=== PATIENT | male | born 1960 | race African-American/Black ===

== ENCOUNTER 2020-12-25 18:00 | Emergency (ER) | payer BC ==
[~2020-12-25] VITALS: Ht 182.9 cm; Wt 137.4 kg
--- NOTE | ~2020-12-25 | EMS ---
[place] [address] EMS Patient Care Report Name: ELMO CHEEMA [id number] Admission: 12/25/20 Attend Phys: Discharge: 12/25/20 Date of : 62 Report #: [id number] THIS REPORT FOR: //name// Report Transmitted: 12/26/2020 03:25 EMS Care Summary [place], [place] Incident [id number] @ 12/25/2020 17:27 Incident Location [facility] [address] [place] [address] Patient ELMO CHEEMA Male, 59 Years 1960 Patient Address [address] [place] [address] Patient History None Reported, Patient Allergies No known allergies,Bee sting allergy, Patient Medications None Reported, Chief Complaint allergic reaction Disposition Transported No Lights/Termo Dispatch Reason Allergic Reaction/Stings Transported To [facility] Narrative M36 dispatched on an allergic reactions. M36 arrived to find PT laying in left lateral position on mattress inside home. PT face bleeding from laceration by right eye. PT stated bee stings as chief complaint. PT denied medical history, allergies and medication. PT stated he "was in the backyard, [place] [address] EMS Patient Care Report Name: ELMO CHEEMA Room #: DEP [facility]#: [id number] Admission: 12/25/20 Attend Phys: Discharge: 12/25/20 Date of : 62 Report #: [id number] my legs. I came inside to take a shower to help the pain and fell in the bathroom." PT denied neck and back pain. PT airway open and patent with no obvious swelling. PT denied difficulty breathing. PT alert and oriented. PT rolled onto lidya kiln remover and carried out of home by fire and EMS. PT secured to stretcher with seatbelts. IV access obtained. PT placed on oxygen via NC by P42. PT treated per allergic reaction protocol. PT vitals monitored in route. PT report given. PT moved to hospital bed via four person sheet lift. PT care and belongings transferred to ER staff at [facility] without incident. M36 placed back in service. Initial Vitals @17:50P: 72,R: 20,Pain: 10/10,GCS: 15,CO: 2,SpO2: 92, @17:48P: 120,R: 24,BP: 84/54,Pain: 10/10,GCS: 15,CO: 4,SpO2: 95,Revised Trauma: 11, @17:58P: 100,R: 18,BP: 112/60,Pain: 10/10,GCS: 15,Glucose: 142,CO: 4,SpO2: 96,Revised Trauma: 12,HI Suspected: false @17:59P: 140,R: 20,Pain: 10,GCS: 15,CO: 6,SpO2: 94, Assessments @17:36MENTAL:Time Oriented,Place Oriented,Event Oriented,Person Oriented,SKIN:Pale,HEENT:Head/Face: Drainage,Head/Face: Other,Head/Face: Swelling,LUNG SOUNDS:General: Nausea,General: Vomiting,ABDOMEN:General: Nausea,General: Vomiting,PELVIS//GI:EXTREMITIES:PULSE:Radial: 1+ Thready,NEURO:Tremors,@18:08MENTAL:Time Oriented,Place Oriented,Person Oriented,Event Oriented,SKIN:Pale,HEENT:Head/Face: Drainage,Head/Face: Swelling,Head/Face: Mass,LUNG SOUNDS:General: Vomiting,General: Nausea,ABDOMEN:General: Vomiting,General: Nausea,PELVIS//GI:EXTREMITIES:Left Leg: Weakness,Right Leg: Weakness,Capillary Refill: Right Upper: 4 Sec,Capillary Refill: Left Upper: 4 Sec,PULSE:Radial: 2+ Normal,NEURO: Impression Allergic Reaction Procedures @17:36ALS AssessmentResponse: UnchangedSucceeded@17:50Benadryl - 50 Milligrams (mg) - Intravenous (IV)Response: Improved@17:41Normal Saline (.9% NaCl) 250cc (18 ga) Site: Antecubital-LeftResponse: ImprovedSucceeded@17:43Epinephrine 1:1 - 0.3 Milligrams (mg) - Intravenous (IV)Response: Unchanged@18:00Epinephrine 1:1 - 0.3 Milligrams (mg) - Intravenous (IV)Response: Improved@17:56Oxygen FlowRate: 8 Device: Nebulizer Response: UnchangedSucceeded@17:54Albuterol - 2.5 Milligrams (mg) - NebulizedResponse: Improved@17:54Atrovent - 0.5 Milligrams (mg) - NebulizedResponse: Improved@17:40Oxygen FlowRate: 4 Device: Nasal Cannula (NC) Response: UnchangedSucceeded Timeline [facility] [address] [place] [address] EMS Patient Care Report Name: ELMO CHEEMA Room #: [facility]P [facility]#: [id number] Admission: 12/25/20 Attend Phys: Discharge: 12/25/20 Date of : 62 Report #: [id number] 17:26,Call Received 17:26,Dispatch Notified 17:27,Dispatched 17:27,En Route 17:34,On Scene 17:36,At Patient 17:36,ALS Assessment,Response: UnchangedSucceeded, 17:40,Oxygen FlowRate: 4 Device: Nasal Cannula (NC) Response: UnchangedSucceeded, 17:41,Normal Saline (.9% NaCl) 250cc 18 ga Site: Antecubital-Left,Response: ImprovedSucceeded, 17:43,Epinephrine 1:1 - 0.3 Milligrams (mg) - Intravenous (IV),Response: Unchanged 17:47,Depart Scene 17:48,BP: 84/54 M,PULSE: 120,RR: 24 R,SPO2: 95 Ox,ETCO2: ,BG: ,PAIN: 10,GCS: 15, 17:50,Benadryl - 50 Milligrams (mg) - Intravenous (IV),Response: Improved 17:50,BP: / M,PULSE: 72,RR: 20 R,SPO2: 92 Ox,ETCO2: ,BG: ,PAIN: 10,GCS: 15, 17:54,Albuterol - 2.5 Milligrams (mg) - Nebulized,Response: Improved 17:54,Atrovent - 0.5 Milligrams (mg) - Nebulized,Response: Improved 17:56,Oxygen FlowRate: 8 Device: Nebulizer Response: UnchangedSucceeded, 17:58,BP: 112/60 M,PULSE: 100,RR: 18 R,SPO2: 96 Ox,ETCO2: ,B,PAIN: 10,GCS: 15, 17:59,BP: / M,PULSE: 140,RR: 20 R,SPO2: 94 Ox,ETCO2: ,BG: ,PAIN: 10,GCS: 15, 18:00,Epinephrine 1:1 - 0.3 Milligrams (mg) - Intravenous (IV),Response: Improved 18:07,At Destination 18:29,Call Closed Disclaimer [email or web address] Copyright 2020 [employer] This EMS Care Summary contains data elements from the applicable legal record (which may be displayed differently). It is designed to provide pertinent information for the following purposes: continuity of care, clinical quality, and state data reporting. The complete legal record is available to ED staff and administrators of the receiving hospital in [employer] Patient Tracker. All data is provided "as is."
[2020-12-25 18:31] LABS: BASOPHILS 0.4 % (0.0-2.0); EOSINOPHILS 0.4 % (0.0-3.0); HEMATOCRIT 50.9 % (42.0-52.0); HEMOGLOBIN 16.4 gm/dL (14.0-18.0); LYMPHOCYTES 38.7 % (24.0-44.0); MCH 28.6 pg (26.0-34.0); MCHC 32.2 g/dL (28.0-37.0); MCV 88.7 fL (80.0-100.0); MONOCYTES 3.6 % (1.0-8.0); PLATELET COUNT 239 thou/uL (150-400); POLYS 56.9 % (36.0-66.0); RBC 5.74 mil/uL (4.50-6.00); RDW 15.8 % (10.5-14.5); WBC 12.2 thou/uL (4.0-11.0)
[2020-12-25 18:33] LABS: CALCIUM 8.9 mg/dL (8.5-10.1); CREATININE 2.5 mg/dL (0.7-1.3); POTASSIUM 3.8 mmol/L (3.5-5.1)
[2020-12-25 18:39] LABS: ALBUMIN 3.4 g/dL (3.4-5.0); TOTAL BILIRUBIN 0.7 mg/dL (0.2-1.0)
[2020-12-25 21:57] LABS: CALCIUM 7.9 mg/dL (8.5-10.1); POTASSIUM 3.9 mmol/L (3.5-5.1)
[2020-12-25] MEDS ORDERED: EPIPEN 2-P0.3 MG/0.3 IM (22:23)
[2020-12-25] MEDS ORDERED: MEDROLDOSEPACK PO (22:47)
[2020-12-25 22:56] VITALS: BP 111/58
== END 2020-12-25 22:59 | disposition home or self-care (01) ==
LOC: ER 18:00
PROVIDERS: Emergency Medicine
DX: T63.441A Toxic effect of venom of bees, accidental (unintentional), initial encounter (principal); Z20.822 Contact with and (suspected) exposure to COVID-19; T78.2XXA Anaphylactic shock, unspecified, initial encounter; S01.81XA Laceration without foreign body of other part of head, initial encounter; Y92.096 Garden or yard of other non-institutional residence as the place of occurrence of the external cause; W01.198A Fall on same level from slipping, tripping and stumbling with subsequent striking against other object, initial encounter; Y93.89 Activity, other specified; Y92.89 Other specified places as the place of occurrence of the external cause; Y99.8 Other external cause status

== ENCOUNTER → 2020-12-31 | Emergency (ER) | payer BC ==
[~2020-12-31] VITALS: Ht 185.4 cm; Wt 137.4 kg
[~2020-12-31] MED LIST: EPIPEN 2-P0.3 MG/0.3 IM; MEDROLDOSEPACK PO
[2020-12-31 16:15] VITALS: BP 156/92
== END ==
LOC: ER 15:53
DX: S01.111D Laceration without foreign body of right eyelid and periocular area, subsequent encounter (principal); Z79.899 Other long term (current) drug therapy; X58.XXXD Exposure to other specified factors, subsequent encounter